=== PATIENT | female | born 1950 | race Caucasian/White ===

== ENCOUNTER 2023-06-20 09:46 | Day surgery (SDC) | payer MEDICARE, OTHER, SELFPAY ==
[2023-06-20] VITALS (22 sets, daily range): BP systolic 101–157; BP diastolic 69–115; PULSE 50–85; RESP 10–20; TEMP 35.9–36.8; O2SAT 91–99; BMI 25.7
[2023-06-20] MEDS: MIDAZOLAM HCL 1 MG/ML inj IVP (09:16)
[2023-06-20] MEDS: fentaNYL 100 MCG/2 ML inj IVP (09:16)
[2023-06-20] MEDS: ACETAMINOPHEN 500 MG TABLET 1000 MG PO ×2 (09:16→17:44)
[2023-06-20] MEDS: OXYCODONE (CR) 10 MG TAB.ER.12H PO (09:16)
[2023-06-20] MEDS: LACTATED RINGERS 1000 ML 1,000 ML 100 ML IV ×2 (09:20→12:19)
--- NOTE | 2023-06-20 10:29 | W.PM.H&PU ---
History & Physical Update History & Physical Update H&P Reviewed and patient assessed: No changes noted
--- NOTE | 2023-06-20 10:35 | CRLHL7_ITS ---
For Patients: As a result of the Cures Act, medical imaging exams and procedure reports are released immediately into your electronic medical record. You may view this report before your referring provider. If you have questions, please contact your health care provider. INDICATION: Postop right hip arthroplasty. For follow-up. TECHNIQUE: AP pelvis and single cross table lateral view of the right hip. FINDINGS: Right total hip arthroplasty. The components are adequately aligned and well seated. Air within the soft tissues and joint space related to the surgery. IMPRESSION: Right total hip arthroplasty. The components are adequately aligned and well seated. Dictated by Ezio Adams MD @ 06/20/2023 6:15:05 PM (Electronically Signed)
[2023-06-20] MEDS: SODIUM CHLORIDE 0.9 % (FLUSH) 10 ML SYRINGE IVF (10:51)
--- NOTE | 2023-06-20 10:51 | SUR.PREOP ---
iodine nasal swabs done
--- NOTE | 2023-06-20 10:59 | SUR.PREOP ---
TIME?OUT:?1055 PT/RN/MDA?VERIFICATION?OF?SURGICAL?SITE,?PROCEDURE,?AND?CONSENT OBTAINED?PRIOR?TO?INVASIVE?PROCEDURE.right hip Rufino carrillo RN pt and consent
--- NOTE | 2023-06-20 11:30 | CRLHL7_ITS ---
For Patients: As a result of the Century Cures Act, medical imaging exams and procedure reports are released immediately into your electronic medical record. You may view this report before your referring provider. If you have questions, please contact your health care provider. INDICATION: Follow up right hip arthroplasty. TECHNIQUE: Fluoroscopically guided intraoperative evaluation of the right hip. FINDINGS: 26.7 seconds fluoroscopy time utilized intraoperatively. There is a right hip arthroplasty. The components are adequately aligned. IMPRESSION: 26.7 seconds fluoroscopy time utilized intraoperatively. Dictated by Ezio Adams MD @ 06/20/2023 6:11:24 PM (Electronically Signed)
[2023-06-20] MEDS: CEFAZOLIN 2 GM in 0.9 % SODIUM CHLORIDE Mini-bag 100 ML IVPB ×2 (11:41→20:15)
[2023-06-20] MEDS: TRANEXAMIC ACID 100 MG/ML INJ 1000 MG IV (11:41)
--- NOTE | 2023-06-20 11:50 | P.NB_ITS ---
Nerve Block Nerve Block Time Seen by Provider: 10:59 Date Seen: 06/20/23 Type of block requested by surgeon for post-operative analgesia: FAMILIA/LFCN Side: right Time out performed: Yes Verification of patient name: Yes Verification of date of : Yes Site marking: site marked Name of person performing procedure: Rufino Continuous monitoring Was continuous monitoring of O2 sat, B/P, phototypesetting equipment monitor, recorded every 15 minutes?: Yes Procedure Checklist: sterile prep, needles and gloves Ultrasound guided. Images saved: Yes Medications given in 5ml increments after negative aspiration: Ropivicaine %: 0.5 mL: 30 Needle gauge: 20 Decadron (mg): 10 Precedex (mcg): 25 Patient tolerated procedure well: Yes Additional comments: Needle noted below psoas tendon needle noted adjacent to LFCN Block Charges Block Charge (with Pro Fee): Other Periph Nerve Block Use of Ultrasound Machine for Block: Yes- US Guidance/pain block
--- NOTE | 2023-06-20 11:51 | W.ANESCHARGE ---
Anesthesia Charges Start Date/Time Anesthesia Start Date: 06/20/23 Anesthesia Start Time: 11:16 Stop Date/Time Anesthesia Stop Date: 06/20/23 Anesthesia Stop Time: 13:20 Summary Extremes of Age - Over 70 or under 1: MDA
--- NOTE | 2023-06-20 13:15 | P.ORPRC_ITS ---
Procedure Note Date of procedure: 06/20/23 Procedure: PREOPERATIVE DIAGNOSIS: 1. Right hip osteoarthritis, severe, primary POSTOPERATIVE DIAGNOSIS: 1. Right hip osteoarthritis, severe, primary PROCEDURE: 1. Right total hip arthroplasty-anterior approach 2. 31801 - intraoperative fluoroscopy up to 1 hour. SURGEON: Ponce Rene MD. NUT PACKER: KIRA Patel; Corey Snow PA-C - Of note, a skilled children's nursery assistant was critical for this case to aid in patient positioning, tissue retraction, limb manipulation/positioning, and closure. ANESTHESIA: General endotracheal anesthetic EBL: Severe 350 mL IMPLANTS: DePuy J&J uncemented total hip [place] cup size 50, hole eliminator, +0 neutral liner Actis stem, standard offset, size 7 +1 mm ceramic 32mm head COMPLICATIONS: None evident INDICATIONS: The patient is a pleasant 72-year-old female who has experienced severe right hip pain and difficulty bearing weight. Workup included x-rays which revealed severe osteoarthrosis in the hip. Given the deformity, the dysfunction, and the pain, as well as the failure of nonoperative management, recommendation was made for surgery. FINDINGS: Full-thickness cartilage loss throughout the femoral head broadly. Femoral head/neck osteophytes. Osteophytes around the acetabulum as well. Moderate effusion upon entering the joint. DESCRIPTION OF PROCEDURE: Following a thorough discussion of risks, benefits, and alternatives consent was obtained and the right hip was marked. The patient was brought to the operating room and placed supine on the operating table. Induction of anesthesia was undertaken. 2 g IV Ancef and 1 g tranexamic acid was administered within 1 hr of incision preoperatively. Proper time-out was performed identifying proper patient, site, procedure. The operative extremity was prepped and draped in the appropriate sterile fashion using ChloraPrep after the patient was positioned on the [place] table with head in neutral alignment and all bony prominences well padded. C-arm fluoroscopic imaging was utilized to confirm proper pelvis rotation and position, and to get true AP films of both the contralateral left, and the affected right hip. This is for comparison. A longitudinal incision was made starting approximately 1 cm distal to the ASIS, and 3-4 cm lateral. The incision was extended distally aiming toward the lateral border the patella. Sharp incision through skin and bovie cautery through the subcutaneous tissue allowed identification of the TFL fascia. This was sharply divided, and the fascia bluntly released from the muscle fibers as we dissected medial. Upon coming to the medial border, we were able to retract the TFL laterally, and penetrated the deeper fascia and identify the crossing circumflex vessels. These were ligated/cauterized. The rectus was elevated from the capsule, and retractors placed laterally and medially along the femoral neck to help with visualization of the capsule. We then performed an inverted T capsulotomy. The capsule was tagged for later repair. Retractors were placed inside the capsule. The femoral neck was visualized after releasing medially down to the lesser trochanter, along the saddle laterally, and up onto the acetabulum. The femoral neck cut was made in line with our preoperative templating. The head was removed in a single piece, and sized. We turned our attention to acetabular preparation. Initially, the labrum was resected from around the perimeter, the pulvinar was excised, allowing us to visualize the false wall. We started the reaming with a 43 mm reamer. This was medialized down to the true wall. We then enlarged our reamers sequentially up to one size less than the selected cup size. We trialed at the same size and found it to have an excellent fit. The selected cup was then opened, inserted, and impacted in line with the goal of 40? of abduction, and 20-25? of anteversion. This was confirmed on C-arm fluoroscopic imaging to be in the appropriate/goal position. Once the cup was placed we placed a hole eliminator and a liner consistent with preop planning. Attention was turned to the femoral preparation. The limb was extended, externally rotated, and adducted. The posteromedial capsule was released, as retractors were placed allowing excellent access to the proximal femur. Initially a dry box operator was followed by canal finder followed by various broaches. We broached sequentially up to the size noted above, found it to have excellent rotational control, and trialing various heads and necks, revealed that appropriate neck offset, and the above noted head size provided the greatest stability, and caodaism of length, and offset. C-arm fluoroscopic imaging confirmed position of the stem, as well as leg lengths, which were compared with the pre procedure all fluoroscopic images. Trial implants were removed, the real femoral stem inserted, as was the appropriate head. After reducing, the leg was placed through range of motion and stability was confirmed anterior, posterior, and lateral. A 3 min Betadine soak was then performed, and thorough irrigation with normal saline followed. Closure of the capsule was performed with #1 PDS. Bleeding was confirmed to be controlled at this stage, and the TFL fascia was closed with #0 strata fix. Subcutaneous, and subcuticular closure was performed with 2-0 Vicryl and 4-0 Monocryl, respectively. Dressings were applied, and the patient was awoken from anesthesia and transferred the PACU in stable condition. A skilled children's nursery assistant was critical for this case to aid in patient positioning, tissue retraction, acetabular and proximal femoral exposure, limb manipu lation/positioning, dislocation/relocation, patient safety, and closure. PLAN: 1. Weight bear as tolerated operative extremity. 2. 23 hr perioperative antibiotics. 3. Ice. 4. PT/OT consults for ambulation assistance/mobility education. 5. Social work consult for discharge planning. 6. DVT prophylaxis with at SCDs, Ricardo Sonyae, and Xarelto x5 days followed by aspirin for a total of 1 month..
--- NOTE | 2023-06-20 13:21 | P.ANES_ITS ---
Anesthesia Charges Start Date/Time Anesthesia Start Date: 06/20/23 Anesthesia Start Time: 11:16 Stop Date/Time Anesthesia Stop Date: 06/20/23 Anesthesia Stop Time: 13:20 Summary Extremes of Age - Over 70 or under 1: CLINIC ADMINISTRATOR
[2023-06-20] MEDS: fentaNYL 100 MCG/2 ML inj 50 MCG IVP (13:28)
[2023-06-20] MEDS: HYDROmorphone 0.5 mg/0.5 ml inj IVP (13:32)
[2023-06-20] MEDS: LACTATED RINGERS 1000 ML 1,000 ML 75 ML IV (15:34)
--- NOTE | 2023-06-20 16:16 | P.IMCN_ITS ---
Date of Consult Consult date: 06/20/23 Requesting Physician: Orthopedics Primary Care Provider: Magi Willson MD Consult Narrative Reason for consult: Medical management Narrative: María Elena Jenkins is a 72 year old female past medical history significant for osteoarthritis, hypertension, hyperlipidemia is POD#0 s/p right total hip arthroplasty-anterior approach. Patient reports pain is currently well managed. Previously 5/10, but now improved. Denies headache or dizziness. Denies chest pain or shortness of breath. No nausea. Tolerating orals. There have been no perioperative complications or nursing concerns reported. Estimated total blood loss documented as 350 ml. Updated and reviewed the active medical problems, past medical history, past surgical history, social history, allergies and medications in our electronic EMR. Review of Systems Narrative: REVIEW OF SYSTEMS: Complete review of systems performed and negative unless otherwise stated in HPI or below. PFSH PFS Medical History (Updated 06/20/23 @ 16:23 by Erinn Gonsales PA-C) Hypertension ?I10 - Essential (primary) hypertension (ICD-10) Sleep apnea ?G47.30 - Sleep apnea, unspecified (ICD-10) Depression ?F32.A - Depression, unspecified (ICD-10) GERD (gastroesophageal reflux disease) ?K21.9 - Gastro-esophageal reflux disease without esophagitis (ICD-10) Surgical History History of tonsillectomy ?Z90.89 - Acquired absence of other organs (ICD-10) Hx of nasal septoplasty ?Z98.890 - Other specified postprocedural states (ICD-10) Hx of appendectomy ?Z90.49 - Acquired absence of other specified parts of digestive tract (ICD- 10) Social History What is your current living situation?: I presently have a place to live In the past 12 months, utilities in danger of being shut off: no In past 12 months, lack of transportation kept you from medical appts, meetings, work, or getting things needed for daily living: no In the past 12 mos, have been you worried that your food would run out before you had money to buy more?: never true In the past 12 mos, the food you bought just didn't last and you didn't have money to buy more?: never true Highest level of school completed/degree received: decline to answer Smoking Status: Former smoker What tobacco products do you use: cigarettes Smoking quit date/years: >15 years ago Do you use any of these nicotine containing products: None Second hand tobacco smoke exposure: No How often do you have a drink containing alcohol: monthly or less Alcohol type: wine How many standard drinks containing alcohol do you have on a typical day: 1 or 2 How often do you have six or more drinks on one occasion: Never AUDIT-C Alcohol total score: 1 Non-prescribed substance use: denies use Caffeine: Yes (coffee) How often does anyone, including family, friends and others, physically hurt you : never How often does anyone, including family, friends and others, insult or talk down to you: never How often does anyone, including family, friends and others, threaten you with harm: never How often does anyone, including family, friends and others, scream or curse at you: never service: No Meds Home Medications and Allergies Home Medications Medication Instructions Recorded Confirmed Type losartan 100 mg tablet 100 mg PO DAILY 06/07/23 06/20/23 History omeprazole 40 mg capsule,delayed 40 mg PO DAILY 06/07/23 06/20/23 History release rosuvastatin 5 mg tablet 5 mg PO DAILY 06/07/23 06/20/23 History Allergies Allergy/AdvReac Type Severity Reaction Status Date / Time lisinopril Allergy Cough Verified 06/20/23 10:10 Penicillins Allergy Verified 06/20/23 10:10 Exam Narrative: Exam Narrative: PHYSICAL EXAM General: Pleasant, conversant, NAD HEENT: Normocephalic, atraumatic, sclera white, EOMI, oral mucosa moist Cardiovascular: RRR, S1S2. No pitting edema Pulmonary: CTA bilaterally without rhonchi, rales, expiratory wheezes. No dyspnea Abdominal: Soft, nondistended, NTTP Neurological: Alert, answering questions appropriately, cranial nerves intact, no focal findings Extremities: No gross joint deformity or swelling. Postoperative dressing in place, dry. Neurovascularly intact Skin: Warm, dry. Const: Vital Signs, click to edit/add: Vital Signs - 24 hr 06/20/23 10:48 06/20/23 11:01 06/20/23 13:15 Temperature 98.3 F 97.2 F L Pulse Rate 83 70 83 Pulse Rate [Left P ulse Oximeter] Respiratory Rate 18 16 20 Blood Pressure 152/96 H 130/80 157/103 H Blood Pressure [Ri ght Arm] Pulse Oximetry 96 95 92 Oxygen Delivery Me thod Room Air Nasal Cannula Room Air Oxygen Flow Rate 3 06/20/23 13:20 06/20/23 13:25 06/20/23 13:30 Temperature Pulse Rate 81 76 71 Pulse Rate [Left P ulse Oximeter] Respiratory Rate 10 L 10 L 12 Blood Pressure 128/91 H 128/86 132/84 Blood Pressure [Ri ght Arm] Pulse Oximetry 95 91 98 Oxygen Delivery Me thod Nasal Cannula Oxygen Flow Rate 2 06/20/23 13:35 06/20/23 13:40 06/20/23 13:45 Temperature Pulse Rate 71 63 60 Pulse Rate [Left P ulse Oximeter] Respiratory Rate 10 L 10 L 10 L Blood Pressure 122/83 121/76 137/88 Blood Pressure [Ri ght Arm] Pulse Oximetry 98 98 98 Oxygen Delivery Me thod Oxygen Flow Rate 06/20/23 13:50 06/20/23 13:55 06/20/23 14:03 Temperature 97.3 F L 96.7 F L Pulse Rate 65 71 62 Pulse Rate [Left P ulse Oximeter] Respiratory Rate 14 12 14 Blood Pressure 126/76 127/89 Blood Pressure [Ri ght Arm] 142/82 H Pulse Oximetry 95 98 Oxygen Delivery Me thod Nasal Cannula Nasal Cannula Oxygen Flow Rate 2 1 06/20/23 14:15 06/20/23 14:30 06/20/23 14:45 Temperature 96.7 F L Pulse Rate Pulse Rate [Left P ulse Oximeter] 74 50 L 52 L Respiratory Rate 16 16 14 Blood Pressure Blood Pressure [Ri ght Arm] 147/95 H 140/115 H 136/72 Pulse Oximetry 97 98 98 Oxygen Delivery Me thod Nasal Cannula Nasal Cannula Nasal Cannula Oxygen Flow Rate 1 0.5 0.5 06/20/23 15:00 Temperature 96.7 F L Pulse Rate Pulse Rate [Left P ulse Oximeter] 65 Respiratory Rate 16 Blood Pressure Blood Pressure [Ri ght Arm] 134/86 Pulse Oximetry 99 Oxygen Delivery Me thod Room Air Oxygen Flow Rate Assessment and Plan Assessment and plan (1) Osteoarthritis of right hip: Problem comment: -POD#0 s/p R ALE -perioperative management including pain management and anticoagulation per Orthopedic surgery -encourage postoperative pulmonary hygiene -PT OT consults -plan to discharge home with friend tomorrow, 06/21 Status: Acute (2) Hypertension: Problem comment: -home medications include losartan and rosuvastatin for hyperlipidemia -may resume home medications upon discharge. May consider antihypertensives in the morning if necessary Status: Acute Plan Hospital medicine team will sign off. Please contact our service with any questions or concerns.
[2023-06-20] MEDS: SENNOSIDES 1 TAB TABLET 2 TAB PO (20:18)
--- NOTE | 2023-06-20 22:14 | PC.NURSE ---
End of Shift: Patient pleasant and cooperative. Afebrile. Rating pain in right hip 1-5/10 and denies need for PRN pain medication. Up to bathroom with 2 assist, walker and gait belt. Leg buckled on the way to the bathroom patient able to stabilize self. Dressing to right hip C/D/I. CMS intact. Tolerating regular diet with no nausea.
[2023-06-21 03:00] VITALS: BP 139/86; PULSE 86; RESP 20; TEMP 36.1; O2SAT 94
[2023-06-21] MEDS: CEFAZOLIN 2 GM in 0.9 % SODIUM CHLORIDE Mini-bag 100 ML IVPB (03:36)
--- NOTE | 2023-06-21 05:55 | PC.NURSE ---
End of shift [id number]: Patient denies any pain to right hip, continues to utilize ice for swelling/inflammation prophylactically. Up with SBA with walker and gait belt to bathroom, continent of bladder and bowel Dressing to right hip clean, dry and intact.
[2023-06-21 06:13] LABS: Basophils Percent Auto 0.1 % (0.0-3.0); Hematocrit 40.3 % (33.0-51.0); Immature Granulocytes Pct Auto 0.8 %; Lymphocytes Percent Auto 6.2 % (20-44); Mean Corpuscular HGB Conc 35 gm/dL (32-36); Mean Corpuscular Hemoglobin 32 pg (26-34); Mean Corpuscular Volume 91 fL (80-100); Monocytes Percent Auto 7.2 % (0.0-11.0); Neutrophils Percent Auto 85.7 % (42.0-72.0); Platelet Count* 210 K/uL (140-440); RDW Coefficient of Variation % 12.7 % (11.5-15.5); Red Blood Count 4.45 m/uL (4.00-5.20); White Blood Count* 16.77 K/uL (4.50-11.00)
[2023-06-21 06:28] LABS: Potassium* 4.1 mmol/L (3.6-5.1); Sodium* 135 mmol/L (135-149)
[2023-06-21 06:30] LABS: Slide Review Reflex No
[2023-06-21 06:31] LABS: Blood Urea Nitrogen* 18 mg/dL (7-30); Creatinine* 0.6 mg/dL (0.5-1.5); Est. Creatinine Clearance* 51.58; Estimated Glomerular Filt Rate 94 ml/min
[2023-06-21 07:42] VITALS: BP 147/92; PULSE 89; RESP 16; TEMP 36.8; O2SAT 96
[2023-06-21] MEDS: OXYCODONE 5 MG TABLET PO (07:46)
--- NOTE | 2023-06-21 08:32 | P.ORPN_ITS ---
Subjective Subjective Date Seen: 06/21/23 Principal diagnosis: Status postop day 1, right total hip arthroplasty - anterior approach Interval history: Patient reports doing well. No acute events over night. Reports slept very well. Pain managed with scheduled and PRN medications, ice. DVT prophylaxis: Rivaroxaban, bilateral knee high Ricardo stockings, SCDs, walking. Notes 1 right lower extremity buckle episode yesterday, as she comments she was unable to feel her leg. Did not fall. Starting to experience some tingling along the right lower extremity. Denies fevers, chills, aches, N/V, CP, SOB/MILLAN, or lightheadedness. No flatus to date. Ortho Exam Narrative Exam Narrative: -Patient appears comfortable in bed; no apparent acute distress. Friend pres ent. -Alert and oriented times 3 -Operative hip swollen; soft tissues supple; no obvious erythema. Ecchymosis minimal posterior proximal bandage region. Warmth appropriate -Surgical dressing clean, dry, intact; no obvious drainage, no erythematous streaking peripheral to the bandage -Bilateral calves soft and supple; no significant swelling, edema, tenderness, erythema, discoloration, warmth, or palpable cords -2+ DP/PT pulses, intact dermatomes and myotomes distally (5/5 strength). Positive numbness about the lateral femoral cutaneous nerve distribution. Strong quad control. Const Vital Signs, click to edit/add: Vital Signs - 24 hr 06/20/23 10:48 06/20/23 11:01 06/20/23 13:15 Temperature 98.3 F 97.2 F L Pulse Rate 83 70 83 Pulse Rate [Left Pulse Oximeter] Respiratory Rate 18 16 20 Blood Pressure 152/96 H 130/80 157/103 H Blood Pressure [Left Arm] Blood Pressure [Right Arm] Pulse Oximetry 96 95 92 Oxygen Delivery Method Room Air Nasal Cannula Room Air Oxygen Flow Rate 3 06/20/23 13:20 06/20/23 13:25 06/20/23 13:30 Temperature Pulse Rate 81 76 71 Pulse Rate [Left Pulse Oximeter] Respiratory Rate 10 L 10 L 12 Blood Pressure 128/91 H 128/86 132/84 Blood Pressure [Left Arm] Blood Pressure [Right Arm] Pulse Oximetry 95 91 98 Oxygen Delivery Method Nasal Cannula Oxygen Flow Rate 2 06/20/23 13:35 06/20/23 13:40 06/20/23 13:45 Temperature Pulse Rate 71 63 60 Pulse Rate [Left Pulse Oximeter] Respiratory Rate 10 L 10 L 10 L Blood Pressure 122/83 121/76 137/88 Blood Pressure [Left Arm] Blood Pressure [Right Arm] Pulse Oximetry 98 98 98 Oxygen Delivery Method Oxygen Flow Rate 06/20/23 13:50 06/20/23 13:55 06/20/23 14:03 Temperature 97.3 F L 96.7 F L Pulse Rate 65 71 62 Pulse Rate [Left Pulse Oximeter] Respiratory Rate 14 12 14 Blood Pressure 126/76 127/89 Blood Pressure [Left Arm] Blood Pressure [Right Arm] 142/82 H Pulse Oximetry 95 98 Oxygen Delivery Method Nasal Cannula Nasal Cannula Oxygen Flow Rate 2 1 06/20/23 14:15 06/20/23 14:30 06/20/23 14:45 Temperature 96.7 F L Pulse Rate Pulse Rate [Left Pulse Oximeter] 74 50 L 52 L Respiratory Rate 16 16 14 Blood Pressure Blood Pressure [Left Arm] Blood Pressure [Right Arm] 147/95 H 140/115 H 136/72 Pulse Oximetry 97 98 98 Oxygen Delivery Method Nasal Cannula Nasal Cannula Nasal Cannula Oxygen Flow Rate 1 0.5 0.5 06/20/23 15:00 06/20/23 15:30 06/20/23 16:30 Temperature 96.7 F L Pulse Rate Pulse Rate [Left Pulse Oximeter] 65 66 67 Respiratory Rate 16 16 16 Blood Pressure Blood Pressure [Left Arm] Blood Pressure [Right Arm] 134/86 110/75 119/69 Pulse Oximetry 99 93 94 Oxygen Delivery Method Room Air Room Air Room Air Oxygen Flow Rate 06/20/23 17:30 06/20/23 18:30 06/20/23 19:30 Temperature 97.1 F L 97.4 F L Pulse Rate Pulse Rate [Left Pulse Oximeter] 67 72 85 Respiratory Rate 16 16 18 Blood Pressure Blood Pressure [Left Arm] Blood Pressure [Right Arm] 133/87 101/82 137/92 H Pulse Oximetry 92 94 93 Oxygen Delivery Method Room Air Room Air Room Air Oxygen Flow Rate 06/20/23 23:00 06/20/23 23:00 06/21/23 03:00 Temperature 98.2 F 97.0 F L Pulse Rate Pulse Rate [Left Pulse Oximeter] 80 80 86 Respiratory Rate 18 18 20 Blood Pressure Blood Pressure [Left Arm] 123/78 139/86 Blood Pressure [Right Arm] Pulse Oximetry 92 94 Oxygen Delivery Method Room Air Room Air Oxygen Flow Rate 06/21/23 07:42 Temperature 98.3 F Pulse Rate Pulse Rate [Left Pulse Oximeter] 89 Respiratory Rate 16 Blood Pressure Blood Pressure [Left Arm] 147/92 H Blood Pressure [Right Arm] Pulse Oximetry 96 Oxygen Delivery Method Room Air Oxygen Flow Rate Assessment and Plan Assessment and plan (1) Osteoarthritis of right hip: Problem details: -POD#1 s/p R ALE -perioperative management including pain management and anticoagulation per Orthopedic surgery -encourage postoperative pulmonary hygiene -PT OT consults -plan to discharge home with friend tomorrow, 06/21 Status: Acute (2) Hypertension: Problem details: -home medications include losartan and rosuvastatin for hyperlipidemia -may resume home medications upon discharge. May consider antihypertensives in the morning if necessary Status: Acute Plan - Complete 23 hour perioperative antibiotics. - PT/OT consult for education and assistance. - Social work consult for discharge planning - Prescribed analgesics as needed - DVT prophylaxis: Rivaroxaban, bilateral knee high Ricardo Hose stockings and SCDs - Anticipation is for discharge to home with friend 06/21/2023 if the patient remains medically stable, pain is controlled, and they are safe with mobilization.
[2023-06-21] MEDS: RIVAROXABAN 10 MG TABLET PO (09:03)
[2023-06-21] MEDS: SENNOSIDES 1 TAB TABLET 2 TAB PO (09:03)
--- NOTE | 2023-06-21 10:54 | PC.NURSE ---
Pt alert and oriented. Pt had no complaints of pain but just that she felt bruised. Pt up with SBA with walker. Pt?s dressing is dry and intact. Pt discharged home with friend at 1040am.
== END 2023-06-21 10:45 | disposition home or self-care (01) ==
LOC: OR 09:47 → MEDSURG 09:50
PROVIDERS: PCP Family Medicine; Visit Provider Orthopaedic Surgery Sports Medicine
PROC: (CPT 27130; principal; 2023-06-20 11:30)
DX: M16.11 Unilateral primary osteoarthritis, right hip (principal); G89.18 Other acute postprocedural pain; I10 Essential (primary) hypertension; G47.30 Sleep apnea, unspecified; F32.A Depression, unspecified; K21.9 Gastro-esophageal reflux disease without esophagitis
CPT/HCPCS: 27130; 01214; 36415; 64450; 73501; 76000; 76942; 82565; 84132; 84295; 84520; 85025; 97110; 97116; 97161; 97165; 97535; 99100; A9270; C1776; J0690; J1100; J1170; J2250; J2405; J2704; J2710; J2795; J3010; J7120

== ENCOUNTER 2023-07-20 11:15 | Outpatient (RCR) | payer MEDICARE, OTHER, SELFPAY ==
--- NOTE | 2023-06-09 11:40 | PT.OPEX ---
PT [place] Outpatient Eval PT [facility] Outpatient Eval Start: 06/09/23 07:04 Freq: Status: Active Protocol: Document 06/09/23 07:04 MLS (Rec: 06/09/23 11:38 MLS [id number]) E-signed By Corazon Brooks DPT Physical Therapy Outpatient Evaluation Insurance Information Recert Due Date 09/06/23 Insurance Name Medicare B,[employer] Medical Diagnosis M16.11 Unilateral primary OA, right hip Z96.641 presence of right artificial hip joint 06/20/23 Treating Diagnosis M16.11 Unilateral primary OA, right hip Z96.641 presence of right artificial hip joint 06/20/23 Referring MD Ponce Rene MD Subjective Subjective Patient is a 72 year old female who presents to physical therapy for her pre- op appointment prior to her ALE surgery scheduled on 06/20. She states that she has had hip pain for years. She is doing personal training ( twice a week es/Th), chiropractic, and acupuncture to try to keep it in check. Aggravating factors include walking long distances, crossing legs, getting on and off ground. Significant past medical history includes arthritis. Patient would like to be able to walk pain- free through attending her physical therapy sessions. Pain Comments Today: 6/10 on a 0-10 pain scale with 10 = extreme pain At its worst: 8/10 At its best: 6/10 Current Work Status Retired Occupation Previous temporary administrative assistant Preferred Name [employer] Objective Other/Pertinent Objective Antalgic gait noted KNEE ROM Grossly tested WNL HIP ROM Left hip: Grossly tested WNL Right hip: Extension/Flexion: 0-90, pain at end range of both Internal Rotation: 30 External Rotation 30 Abduction: 30 LLE MMT: Hip flexion: R 3+/5 L 4/5 Hip abduction: R 3/5 L 4-/5 Hip extension: R 3+/5 L 4/5 Knee flexion: R 4/5 L 4/5 Knee extension: R 4-/5 L 4/5 TX: Reviewed/demonstrated on frequency to perform HEP post operatively including: long sitting quad set ankle pumps supine glute sets supine hamstring sets supine heel slide standing hip abd with UE support Extensive discussion and education on what to expect post operatively. Time was spent discussing home modifications, Assistive devices, pain control, fall prevention, hospital stay time line, and assist needed for activities post surgically. Pt questions were answered and demonstrated understanding. Functional Test Performed & Score Post-op: ...../80 A score increase of 6 points shows a significant improvement in lower extremity function. Assessment Assessment/Impression Pt is a 72 year old female who presents with concerns of right hip pain and for her pre -op appointment. ALE scheduled for 06/20/23. Patient also has notable objective findings including limited ROM and decreased strength which are also likely contributing to the problem. Patient is a good candidate for skilled therapy to target deficits described above. Skilled PT intervention is necessary for use of therapeutic exercise manual therapy, neuromuscular re- education, gait training, and therapeutic activity. Functional impairments include difficulty with standing, walking, ADLs, and sleeping. See appropriate sections of PT eval for complete list of goals and POC. D/C plan and criteria is for pt to achieve the goals as listed below or until max rehab potential is met. Pt was agreeable with plan of care and goals established. Primary Functional Limitations standing walking getting in and out of car sleeping exercising ADLs sleeping Plan of Care Rehabilitation Potential Good Physical Therapy Goals 1) Pt will be indep with HEP for long-term management of pain/symptoms 2) Pt will improve hip AROM at least 0-90* for improved sit to stand transfers 3) Patient will ascend/descend at least 5 steps using single rail and reciprocal pattern to improve ease of mobility at home/community 4)Pt will ambulate at least 30 minutes with walker and cane device (progression to no assistive device), minimal antalgic gait for improved community mobility 5. Patient will have a 5 point improvement on lower extremity functional scale. 6. Patient will be able to drive for 30 minutes pain free . 7. Patient will be able to perform ADLs with <2/10 pain. 8. Patient will be able to return to her personalization specialist for balance work with <2/10 pain. Coordination/Communication With Referral Source Treatment Plan/Direct Interventions Gait Training,Ice/Cold/ Vasopneumatic,Manual Therapy, Therapeutic Activities, Therapeutic Exercises Patient Will Be Discharged From Therapy Independently Progressing Evaluation Billing Untimed Code Treatment Minutes 15 Complexity Low Certification Information Physician Comment/Change : Physician NPI Number #
== END 2023-09-28 09:19 | disposition home or self-care (01) ==
PROVIDERS: PCP Internal Medicine Gastroenterology; Visit Provider Orthopaedic Surgery Sports Medicine
DX: M16.11 Unilateral primary osteoarthritis, right hip (principal); Z96.641 Presence of right artificial hip joint; Z51.89 Encounter for other specified aftercare
CPT/HCPCS: 97110; 97161

== ENCOUNTER 2024-05-23 06:10 | Emergency (ER) | payer MEDICARE, OTHER, SELFPAY ==
[2024-05-23] VITALS (48 sets, daily range): BP systolic 131–172; BP diastolic 79–127; PULSE 70–91; RESP 16–20; TEMP 36.4; O2SAT 89–97; BMI 25.8
--- NOTE | 2024-05-23 06:35 | ED_ITS ---
HPI - SOB/Dyspnea General Time Seen by Provider: 06:35 <Alexsandra Mcallister MD - Last Filed: 05/23/24 07:24> Date Seen: 05/23/24 <Alexsandra Mcallister MD - Last Filed: 05/23/24 07:24> Chief Complaint: Shortness of Breath/Dyspnea <Alexsandra Mcallister MD - Last Filed: 05/23/24 07:24> Stated Complaint: Difficulty breathing <Alexsandra Mcallister MD - Last Filed: 05/23/24 07:24> Time Seen by Provider: 05/23/24 06:35 <Alexsandra Mcallister MD - Last Filed: 05/23/24 07:24> Source: patient and RN notes reviewed <Alexsandra Mcallister MD - Last Filed: 05/23/24 07:24> Mode of arrival: ambulatory <Alexsandra Mcallister MD - Last Filed: 05/23/24 07:24> Limitations: no limitations <Alexsandra Mcallister MD - Last Filed: 05/23/24 07:24> History of Present Illness HPI Narrative: Froy is a very pleasant 73-year-old female with history of right hip replacement otherwise healthy who comes to the emergency room for evaluation regarding abdominal and chest pain and difficulty breathing. She notes that she had the onset of a band of pain around her upper abdomen lower chest at approximately 0300 hours. She had a similar instance of this discomfort a few nights ago that went away. This morning the pain is not going away. Patient notes that it is very hard to take a deep breath. In triage she had an episode of vomiting and stool and urine incontinence. She notes that the pain wraps around to her back. She notes no recent illnesses cough cold or fever. She denies lower extremity symptoms. She has not had fever or chills. Movement increases her pain. However, she is still experiencing pain when she is sitting. <Alexsandra Mcallister MD - Last Filed: 05/23/24 07:24> Related Data Home Medications: Home Medications ?Medication ?Instructions ?Recorded ?Confirmed losartan 100 mg tablet 100 mg PO DAILY 06/07/23 12/06/23 omeprazole 40 mg capsule,delayed 40 mg PO DAILY 06/07/23 12/06/23 release rosuvastatin 5 mg tablet 5 mg PO DAILY 06/07/23 12/06/23 Previous Rx's ?Medication ?Instructions ?Recorded acetaminophen 500 mg capsule 500 - 1,000 mg (1 - 2 x 500 mg) PO 06/21/23 Q6H PRN #100 caps aspirin 81 mg tablet,delayed 81 mg PO BID #50 tabs 06/21/23 release cephalexin 500 mg capsule 2,000 mg (4 x 500 mg) PO ONCE 07/06/23 pre-med #4 caps <Alexsandra Mcallister MD - Last Filed: 05/23/24 07:24> Allergies/Adverse Reactions: Allergies Allergy/AdvReac Type Severity Reaction Status Date / Time lisinopril Allergy Cough Verified 05/23/24 08:27 Penicillins Allergy Verified 05/23/24 08:27 <Alexsandra Mcallister MD - Last Filed: 05/23/24 07:24> Review of Systems Status of ROS: Reports: 10 or more systems reviewed and unremarkable except as noted in History and below <Alexsandra Mcallister MD - Last Filed: 05/23/24 07:24> [facility] [place] History: Medical History Hypertension ?I10 - Essential (primary) hypertension (ICD-10) Sleep apnea ?G47.30 - Sleep apnea, unspecified (ICD-10) Depression ?F32.A - Depression, unspecified (ICD-10) GERD (gastroesophageal reflux disease) ?K21.9 - Gastro-esophageal reflux disease without esophagitis (ICD-10) <Alexsandra Mcallister MD - Last Filed: 05/23/24 07:24> Surgical History: Surgical History 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) ?Z96.641 - Presence of right artificial hip joint (ICD-10) History of tonsillectomy ?Z90.89 - Acquired absence of other organs (ICD-10) Hx of nasal septoplasty ?Z98.890 - Other specified postprocedural states (ICD-10) Hx of appendectomy ?Z90.49 - Acquired absence of other specified parts of digestive tract (ICD- 10) <Alexsandra Mcallister MD - Last Filed: 05/23/24 07:24> Social History: Social History What is your current living situation?: I presently have a place to live In the past 12 months, utilities in danger of being shut off: no In the past 12 mos, have been you worried that your food would run out before you had money to buy more?: never true In the past 12 mos, the food you bought just didn't last and you didn't have money to buy more?: never true Highest level of school completed/degree received: decline to answer Smoking Status: Former smoker What tobacco products do you use: cigarettes Smoking quit date/years: >15 years ago Do you use any of these nicotine containing products: None Second hand tobacco smoke exposure: No How often do you have a drink containing alcohol: monthly or less Alcohol type: wine How many standard drinks containing alcohol do you have on a typical day: 1 or 2 How often do you have six or more drinks on one occasion: Never AUDIT-C Alcohol total score: 1 Non-prescribed substance use: denies use Caffeine: Yes (coffee) How often does anyone, including family, friends and others, physically hurt you : never How often does anyone, including family, friends and others, insult or talk down to you: never How often does anyone, including family, friends and others, threaten you with harm: never How often does anyone, including family, friends and others, scream or curse at you: never service: No <Alexsandra Mcallister MD - Last Filed: 05/23/24 07:24> Exam Narrative: Exam Narrative: Alert and oriented. She is mildly diaphoretic. Mentating normally. EOM is full. Heart with regular rate and rhythm. Lungs are clear bilaterally although breath sounds are distant as she is unable to take a deep breath. Abdomen shows tenderness in the epigastrium and right upper quadrant. Bowel sounds are present. Lower extremities without edema. She is able to move her extremities and there is no calf tenderness. <Alexsandra Mcallister MD - Last Filed: 05/23/24 07:24> Const: Vital Signs, click to edit/add: Vital Signs - 24 hr 05/23/24 06:28 05/23/24 06:29 05/23/24 06:53 Temperature 97.6 F Pulse Rate Pulse Rate [Left P ulse Oximeter] 90 77 Respiratory Rate 20 20 Blood Pressure Blood Pressure [Ri ght Upper Arm] 172/127 H 165/99 H Pulse Oximetry 95 95 97 Oxygen Delivery Me thod Room Air Room Air 05/23/24 08:03 05/23/24 08:04 05/23/24 08:05 Temperature Pulse Rate 81 76 74 Pulse Rate [Left P ulse Oximeter] Respiratory Rate Blood Pressure 153/89 H Blood Pressure [Ri ght Upper Arm] Pulse Oximetry 93 95 92 Oxygen Delivery Me thod 05/23/24 08:30 05/23/24 08:32 05/23/24 08:33 Temperature Pulse Rate 78 73 72 Pulse Rate [Left P ulse Oximeter] Respiratory Rate Blood Pressure 143/90 H Blood Pressure [Ri ght Upper Arm] Pulse Oximetry 92 94 93 Oxygen Delivery Me thod 05/23/24 09:00 05/23/24 09:02 05/23/24 09:03 Temperature Pulse Rate 76 71 77 Pulse Rate [Left P ulse Oximeter] Respiratory Rate Blood Pressure 148/89 H Blood Pressure [Ri ght Upper Arm] Pulse Oximetry 91 91 91 Oxygen Delivery Me thod 05/23/24 09:32 05/23/24 09:48 05/23/24 10:00 Temperature Pulse Rate 86 83 Pulse Rate [Left P ulse Oximeter] Respiratory Rate Blood Pressure 159/102 H Blood Pressure [Ri ght Upper Arm] Pulse Oximetry 93 92 Oxygen Delivery Me thod 05/23/24 10:02 05/23/24 11:08 05/23/24 11:30 Temperature Pulse Rate 86 79 Pulse Rate [Left P ulse Oximeter] Respiratory Rate 18 Blood Pressure 147/88 H Blood Pressure [Ri ght Upper Arm] Pulse Oximetry 93 91 Oxygen Delivery Me thod 05/23/24 12:12 05/23/24 12:30 05/23/24 13:00 Temperature Pulse Rate 88 86 90 Pulse Rate [Left P ulse Oximeter] Respiratory Rate Blood Pressure Blood Pressure [Ri ght Upper Arm] Pulse Oximetry 91 96 94 Oxygen Delivery Me thod 05/23/24 13:23 05/23/24 13:30 05/23/24 13:32 Temperature Pulse Rate 85 88 80 Pulse Rate [Left P ulse Oximeter] Respiratory Rate 16 16 Blood Pressure 146/79 H 142/96 H Blood Pressure [Ri ght Upper Arm] Pulse Oximetry 93 97 91 Oxygen Delivery Me thod 05/23/24 14:00 05/23/24 14:03 05/23/24 14:04 Temperature Pulse Rate 78 86 77 Pulse Rate [Left P ulse Oximeter] Respiratory Rate 16 Blood Pressure 144/97 H Blood Pressure [Ri ght Upper Arm] Pulse Oximetry 97 93 96 Oxygen Delivery Me thod 05/23/24 14:30 05/23/24 14:31 05/23/24 15:00 Temperature Pulse Rate 79 83 76 Pulse Rate [Left P ulse Oximeter] Respiratory Rate Blood Pressure 141/93 H Blood Pressure [Ri ght Upper Arm] Pulse Oximetry 94 94 93 Oxygen Delivery Me thod 05/23/24 15:02 05/23/24 15:03 05/23/24 15:38 Temperature Pulse Rate 78 77 76 Pulse Rate [Left P ulse Oximeter] Respiratory Rate Blood Pressure 137/91 H Blood Pressure [Ri ght Upper Arm] Pulse Oximetry 92 93 91 Oxygen Delivery Me thod 05/23/24 16:00 05/23/24 16:02 Temperature Pulse Rate 75 76 Pulse Rate [Left P ulse Oximeter] Respiratory Rate Blood Pressure 131/86 Blood Pressure [Ri ght Upper Arm] Pulse Oximetry 91 92 Oxygen Delivery Me thod <Alexsandra Mcallister MD - Last Filed: 05/23/24 07:24> Vital Signs, click to edit/add: Vital Signs - 24 hr 05/23/24 06:28 05/23/24 06:29 05/23/24 06:53 Temperature 97.6 F Pulse Rate Pulse Rate [Left P ulse Oximeter] 90 77 Respiratory Rate 20 20 Blood Pressure Blood Pressure [Ri ght Upper Arm] 172/127 H 165/99 H Pulse Oximetry 95 95 97 Oxygen Delivery Me thod Room Air Room Air 05/23/24 08:03 05/23/24 08:04 05/23/24 08:05 Temperature Pulse Rate 81 76 74 Pulse Rate [Left P ulse Oximeter] Respiratory Rate Blood Pressure 153/89 H Blood Pressure [Ri ght Upper Arm] Pulse Oximetry 93 95 92 Oxygen Delivery Me thod 05/23/24 08:30 05/23/24 08:32 05/23/24 08:33 Temperature Pulse Rate 78 73 72 Pulse Rate [Left P ulse Oximeter] Respiratory Rate Blood Pressure 143/90 H Blood Pressure [Ri ght Upper Arm] Pulse Oximetry 92 94 93 Oxygen Delivery Me thod 05/23/24 09:00 05/23/24 09:02 05/23/24 09:03 Temperature Pulse Rate 76 71 77 Pulse Rate [Left P ulse Oximeter] Respiratory Rate Blood Pressure 148/89 H Blood Pressure [Ri ght Upper Arm] Pulse Oximetry 91 91 91 Oxygen Delivery Me thod 05/23/24 09:32 05/23/24 09:48 05/23/24 10:00 Temperature Pulse Rate 86 83 Pulse Rate [Left P ulse Oximeter] Respiratory Rate Blood Pressure 159/102 H Blood Pressure [Ri ght Upper Arm] Pulse Oximetry 93 92 Oxygen Delivery Me thod 05/23/24 10:02 05/23/24 11:08 05/23/24 11:30 Temperature Pulse Rate 86 79 Pulse Rate [Left P ulse Oximeter] Respiratory Rate 18 Blood Pressure 147/88 H Blood Pressure [Ri ght Upper Arm] Pulse Oximetry 93 91 Oxygen Delivery Me thod 05/23/24 12:12 05/23/24 12:30 05/23/24 13:00 Temperature Pulse Rate 88 86 90 Pulse Rate [Left P ulse Oximeter] Respiratory Rate Blood Pressure Blood Pressure [Ri ght Upper Arm] Pulse Oximetry 91 96 94 Oxygen Delivery Me thod 05/23/24 13:23 05/23/24 13:30 05/23/24 13:32 Temperature Pulse Rate 85 88 80 Pulse Rate [Left P ulse Oximeter] Respiratory Rate 16 16 Blood Pressure 146/79 H 142/96 H Blood Pressure [Ri ght Upper Arm] Pulse Oximetry 93 97 91 Oxygen Delivery Me thod 05/23/24 14:00 05/23/24 14:03 05/23/24 14:04 Temperature Pulse Rate 78 86 77 Pulse Rate [Left P ulse Oximeter] Respiratory Rate 16 Blood Pressure 144/97 H Blood Pressure [Ri ght Upper Arm] Pulse Oximetry 97 93 96 Oxygen Delivery Me thod 05/23/24 14:30 05/23/24 14:31 05/23/24 15:00 Temperature Pulse Rate 79 83 76 Pulse Rate [Left P ulse Oximeter] Respiratory Rate Blood Pressure 141/93 H Blood Pressure [Ri ght Upper Arm] Pulse Oximetry 94 94 93 Oxygen Delivery Me thod 05/23/24 15:02 05/23/24 15:03 05/23/24 15:38 Temperature Pulse Rate 78 77 76 Pulse Rate [Left P ulse Oximeter] Respiratory Rate Blood Pressure 137/91 H Blood Pressure [Ri ght Upper Arm] Pulse Oximetry 92 93 91 Oxygen Delivery Me thod 05/23/24 16:00 05/23/24 16:02 Temperature Pulse Rate 75 76 Pulse Rate [Left P ulse Oximeter] Respiratory Rate Blood Pressure 131/86 Blood Pressure [Ri ght Upper Arm] Pulse Oximetry 91 92 Oxygen Delivery Me thod <Zacarias Moulton MD - Last Filed: 05/23/24 15:32> Vital Signs, click to edit/add: Vital Signs - 24 hr 05/23/24 06:28 05/23/24 06:29 05/23/24 06:53 Temperature 97.6 F Pulse Rate Pulse Rate [Left P ulse Oximeter] 90 77 Respiratory Rate 20 20 Blood Pressure Blood Pressure [Ri ght Upper Arm] 172/127 H 165/99 H Pulse Oximetry 95 95 97 Oxygen Delivery Me thod Room Air Room Air 05/23/24 08:03 05/23/24 08:04 05/23/24 08:05 Temperature Pulse Rate 81 76 74 Pulse Rate [Left P ulse Oximeter] Respiratory Rate Blood Pressure 153/89 H Blood Pressure [Ri ght Upper Arm] Pulse Oximetry 93 95 92 Oxygen Delivery Me thod 05/23/24 08:30 05/23/24 08:32 05/23/24 08:33 Temperature Pulse Rate 78 73 72 Pulse Rate [Left P ulse Oximeter] Respiratory Rate Blood Pressure 143/90 H Blood Pressure [Ri ght Upper Arm] Pulse Oximetry 92 94 93 Oxygen Delivery Me thod 05/23/24 09:00 05/23/24 09:02 05/23/24 09:03 Temperature Pulse Rate 76 71 77 Pulse Rate [Left P ulse Oximeter] Respiratory Rate Blood Pressure 148/89 H Blood Pressure [Ri ght Upper Arm] Pulse Oximetry 91 91 91 Oxygen Delivery Me thod 05/23/24 09:32 05/23/24 09:48 05/23/24 10:00 Temperature Pulse Rate 86 83 Pulse Rate [Left P ulse Oximeter] Respiratory Rate Blood Pressure 159/102 H Blood Pressure [Ri ght Upper Arm] Pulse Oximetry 93 92 Oxygen Delivery Me thod 05/23/24 10:02 05/23/24 11:08 05/23/24 11:30 Temperature Pulse Rate 86 79 Pulse Rate [Left P ulse Oximeter] Respiratory Rate 18 Blood Pressure 147/88 H Blood Pressure [Ri ght Upper Arm] Pulse Oximetry 93 91 Oxygen Delivery Me thod 05/23/24 12:12 05/23/24 12:30 05/23/24 13:00 Temperature Pulse Rate 88 86 90 Pulse Rate [Left P ulse Oximeter] Respiratory Rate Blood Pressure Blood Pressure [Ri ght Upper Arm] Pulse Oximetry 91 96 94 Oxygen Delivery Me thod 05/23/24 13:23 05/23/24 13:30 05/23/24 13:32 Temperature Pulse Rate 85 88 80 Pulse Rate [Left P ulse Oximeter] Respiratory Rate 16 16 Blood Pressure 146/79 H 142/96 H Blood Pressure [Ri ght Upper Arm] Pulse Oximetry 93 97 91 Oxygen Delivery Me thod 05/23/24 14:00 05/23/24 14:03 05/23/24 14:04 Temperature Pulse Rate 78 86 77 Pulse Rate [Left P ulse Oximeter] Respiratory Rate 16 Blood Pressure 144/97 H Blood Pressure [Ri ght Upper Arm] Pulse Oximetry 97 93 96 Oxygen Delivery Me thod 05/23/24 14:30 05/23/24 14:31 05/23/24 15:00 Temperature Pulse Rate 79 83 76 Pulse Rate [Left P ulse Oximeter] Respiratory Rate Blood Pressure 141/93 H Blood Pressure [Ri ght Upper Arm] Pulse Oximetry 94 94 93 Oxygen Delivery Me thod 05/23/24 15:02 05/23/24 15:03 05/23/24 15:38 Temperature Pulse Rate 78 77 76 Pulse Rate [Left P ulse Oximeter] Respiratory Rate Blood Pressure 137/91 H Blood Pressure [Ri ght Upper Arm] Pulse Oximetry 92 93 91 Oxygen Delivery Me thod 05/23/24 16:00 05/23/24 16:02 Temperature Pulse Rate 75 76 Pulse Rate [Left P ulse Oximeter] Respiratory Rate Blood Pressure 131/86 Blood Pressure [Ri ght Upper Arm] Pulse Oximetry 91 92 Oxygen Delivery Me thod <Emily Garrido MD - Last Filed: 05/23/24 16:50> Documenting provider has reviewed patient's vital signs: yes <Alexsandra Mcallister MD - Last Filed: 05/23/24 07:24> Course Course ED Course: Differential diagnosis includes but is not limited to cholecystitis, biliary colic, PE, aortic dissection, diverticulitis, bowel obstruction. Will place IV and draw labs to include CBC, lipase, comprehensive panel, CRP. Will also obtain EKG and troponin. Patient will be placed on environmental monitoring specialist and oximetry. Recommend CT of the chest abdomen pelvis at this time. <Alexsandra Mcallister MD - Last Filed: 05/23/24 07:24> Differential diagnosis includes but is not limited to cholecystitis, biliary colic, PE, aortic dissection, diverticulitis, bowel obstruction. Will place IV and draw labs to include CBC, lipase, comprehensive panel, CRP. Will also obtain EKG and troponin. Patient will be placed on environmental monitoring specialist and oximetry. Recommend CT of the chest abdomen pelvis at this time. <Zacarias Moulton MD - Last Filed: 05/23/24 15:32> Reevaluation(s) Reevaluation #1: This patient will be signed out to my colleague Dr. Moulton <Alexsandra Mcallister MD - Last Filed: 05/23/24 07:24> Time of Reevaluation #2: 08:40 <Zacarias Moulton MD - Last Filed: 05/23/24 15:32> Reevaluation #2: Patient was updated on her lab and imaging results, CBC did not show any leukocytosis, comprehensive metabolic panel showed elevated LFTs, AST 212, ALT 189 and alkaline phosphatase 165, normal bilirubin levels, imaging showed Impression: 1. Intrahepatic and extrahepatic biliary ductal dilation. Tumefactive sludge versus noncalcified stone within the common bile duct measuring up to 2.3 cm. There may be a small amount of adjacent air within the common bile duct concerning for cholangitis if there is no history of recent biliary manipulation. 2. Possible additional filling defect within the distal common bile duct at the level of the ampulla. Additionally, there is pancreatic duct dilation at the pancreatic head and neck. This is suboptimally evaluated and further evaluation with MRI/MRCP is recommended. 3. Tumefactive sludge versus noncalcified gallstone or large polyp within the gallbladder body. No pericholecystic inflammatory change to suggest acute cholecystitis. This could be further evaluated with above-mentioned MRI versus ultrasound. 4. Hepatic steatosis. 5. Small hiatal hernia. Was able to speak with General surgery on-call Dr. Warren QUEVEDO, she reviewed the imaging, recommendations were for an MRCP and then possibly ERCP and transfer for GI, MRCP is ordered, patient is doing well, nontoxic in appearance, pain is been controlled. No clinical signs of any cholangitis at this time. <Zacarias Moulton MD - Last Filed: 05/23/24 15:32> Time of Reevaluation #3: 14:40 <Zacarias Moulton MD - Last Filed: 05/23/24 15:32> Reevaluation #3: Imaging: MRI abdomen without Choledocholithiasis with a 1.8 cm stone in the midportion of the common bile duct causing significant bile duct dilation. Cholelithiasis. Moderate to severe diffuse fatty infiltration of the liver. <Zacarias Moulton MD - Last Filed: 05/23/24 15:32> Consultations Consultation #1: Spoke Dr. Kush Jaramillo, regarding patient and imaging, she agreed to the transfer, will likely speak to the hospitalist regarding transfer. 2:45 PM: Spoke with hospitalist Dr. Rosalie QUEVEDO, he accepts care of the patient to [facility] surgery floor bed, patient to go via private care to [facility]. Patient and daughter were in agreement this plan. <Zacarias Moulton MD - Last Filed: 05/23/24 15:32> Time: 14:27 <Zacarias Moulton MD - Last Filed: 05/23/24 15:32> Consultation #2: Patient remains stable, no definitive transfer time to [facility]. It is just before 5:00 p.m., patient is unlikely to undergo any procedural testing tonight. Will allow her clears, if this escalates her pain, will have to make her NPO and start maintenance IV fluid. Otherwise NPO after midnight and IV fluids to start then. <Emily Garrido MD - Last Filed: 05/23/24 16:50> Time: 16:49 <Emily Garrido MD - Last Filed: 05/23/24 16:50> Vital Signs Vital signs: Initial Vital Signs Respiratory Effort Normal, Spontaneous, Non-Labored 05/23/24 06:28 Respiratory Depth Normal 05/23/24 06:28 Respiratory Pattern Normal 05/23/24 06:28 Pulse Oximetry 95 05/23/24 06:28 Vital Signs Pulse Oximetry 95 05/23/24 06:28 Temperature 97.6 F 05/23/24 06:29 Pulse Rate 76 05/23/24 16:02 Respiratory Rate 16 05/23/24 14:03 Blood Pressure 131/86 05/23/24 16:02 Pulse Oximetry 92 05/23/24 16:02 Oxygen Delivery Method Room Air 05/23/24 06:53 <Alexsandra Mcallister MD - Last Filed: 05/23/24 07:24> Initial Vital Signs Respiratory Effort Normal, Spontaneous, Non-Labored 05/23/24 06:28 Respiratory Depth Normal 05/23/24 06:28 Respiratory Pattern Normal 05/23/24 06:28 Pulse Oximetry 95 05/23/24 06:28 Vital Signs Pulse Oximetry 95 05/23/24 06:28 Temperature 97.6 F 05/23/24 06:29 Pulse Rate 76 05/23/24 16:02 Respiratory Rate 16 05/23/24 14:03 Blood Pressure 131/86 05/23/24 16:02 Pulse Oximetry 92 05/23/24 16:02 Oxygen Delivery Method Room Air 05/23/24 06:53 <Zacarias Moulton MD - Last Filed: 05/23/24 15:32> Initial Vital Signs Respiratory Effort Normal, Spontaneous, Non-Labored 05/23/24 06:28 Respiratory Depth Normal 05/23/24 06:28 Respiratory Pattern Normal 05/23/24 06:28 Pulse Oximetry 95 05/23/24 06:28 Vital Signs Pulse Oximetry 95 05/23/24 06:28 Temperature 97.6 F 05/23/24 06:29 Pulse Rate 76 05/23/24 16:02 Respiratory Rate 16 05/23/24 14:03 Blood Pressure 131/86 05/23/24 16:02 Pulse Oximetry 92 05/23/24 16:02 Oxygen Delivery Method Room Air 05/23/24 06:53 <Emily Garrido MD - Last Filed: 05/23/24 16:50> Medications Administered Medications: Discontinued Medications Generic Name Dose Route Start Last Admin Trade Name Freq PRN Reason Stop Dose Admin Morphine Sulfate 4 mg 05/23/24 06:42 05/23/24 07:28 Morphine 4 Mg/Ml Inj IVP 05/23/24 06:43 4 mg ONCE ONE Administration Ondansetron HCl 4 mg 05/23/24 06:42 05/23/24 07:28 Ondansetron 2 Mg/Ml Inj IVP 05/23/24 06:43 4 mg ONCE ONE Administration <Alexsandra Mcallister MD - Last Filed: 05/23/24 07:24> Discontinued Medications Generic Name Dose Route Start Last Admin Trade Name Freq PRN Reason Stop Dose Admin Morphine Sulfate 4 mg 05/23/24 06:42 05/23/24 07:28 Morphine 4 Mg/Ml Inj IVP 05/23/24 06:43 4 mg ONCE ONE Administration Ondansetron HCl 4 mg 05/23/24 06:42 05/23/24 07:28 Ondansetron 2 Mg/Ml Inj IVP 05/23/24 06:43 4 mg ONCE ONE Administration <Zacarias Moulton MD - Last Filed: 05/23/24 15:32> Discontinued Medications Generic Name Dose Route Start Last Admin Trade Name Freq PRN Reason Stop Dose Admin Morphine Sulfate 4 mg 05/23/24 06:42 05/23/24 07:28 Morphine 4 Mg/Ml Inj IVP 05/23/24 06:43 4 mg ONCE ONE Administration Ondansetron HCl 4 mg 05/23/24 06:42 05/23/24 07:28 Ondansetron 2 Mg/Ml Inj IVP 05/23/24 06:43 4 mg ONCE ONE Administration <Emily Garrido MD - Last Filed: 05/23/24 16:50> MDM - SOB/Dyspnea Medical Records Attestation: I reviewed the patient's medical records. <Alexsandra Mcallister MD - Last Filed: 05/23/24 07:24> Lab Data Attestation: I reviewed the patient's lab results. <Alexsandra Mcallister MD - Last Filed: 05/23/24 07:24> Labs: Lab Results 05/23/24 05/23/24 Range/Units 06:55 07:13 WBC 9.41 (4.50-11.00) K/uL RBC 5.04 (4.00-5.20) m/uL Hgb 15.1 (12.0-16.0) gm/dL Hct 44.4 (33.0-51.0) % MCV 88 (80-100) fL MCH 30 (26-34) pg MCHC 34 (32-36) gm/dL RDW Coeff of Kaye 13.3 (11.5-15.5) % Plt Count 214 (140-440) K/uL Neut % (Auto) 70.2 (42.0-72.0) % Lymph % (Auto) 15.7 L (20-44) % [place] % (Auto) 8.4 (0.0-11.0) % Eos % (Auto) 4.5 (0.0-7.0) % Baso % (Auto) 0.6 (0.0-3.0) % Neut # (Auto) 6.60 (1.7-7.0) K/uL Lymph # (Auto) 1.50 (0.90-2.90) K/uL [place] # (Auto) 0.80 (0.00-0.90) K/UL Eos # (Auto) 0.42 (0.00-0.50) K/uL Baso # (Auto) 0.06 (0.00-0.30) K/uL Abs Immat Gran (auto) 0.06 (0.00-0.30) K/uL Imm/Tot Granulo (auto) 0.6 % Sodium 134 L (135-149) mmol/L Potassium 3.9 (3.6-5.1) mmol/L Chloride 104 (96-114) mmol/L Carbon Dioxide 23 (20-32) mmol/L Anion Gap 7 (7-15) mEq/L BUN 18 (7-30) mg/dL Creatinine 0.8 (0.5-1.5) mg/dL Estimated Creat Clear 50.80 Estimated GFR 77 ml/min Glucose 156 H (60-115) mg/dL Calcium 9.2 (8.4-10.6) mg/dL Total Bilirubin 0.9 (0.1-1.5) mg/dL AST 212 H (12-35) U/L ALT 189 H (4-35) U/L Alkaline Phosphatase 165 H (40-150) U/L Total Protein 6.5 (6.0-8.3) g/dL Albumin 3.9 (3.3-5.0) g/dL Lipase 114 (23-300) U/L POC Creatinine 0.9 (0.6-1.3) mg/dl POC Troponin I 0.01 (0.01-0.04) ng/ml <Alexsandra Mcallister MD - Last Filed: 05/23/24 07:24> Lab Results 05/23/24 05/23/24 Range/Units 06:55 07:13 WBC 9.41 (4.50-11.00) K/uL RBC 5.04 (4.00-5.20) m/uL Hgb 15.1 (12.0-16.0) gm/dL Hct 44.4 (33.0-51.0) % MCV 88 (80-100) fL MCH 30 (26-34) pg MCHC 34 (32-36) gm/dL RDW Coeff of Kaye 13.3 (11.5-15.5) % Plt Count 214 (140-440) K/uL Neut % (Auto) 70.2 (42.0-72.0) % Lymph % (Auto) 15.7 L (20-44) % [place] % (Auto) 8.4 (0.0-11.0) % Eos % (Auto) 4.5 (0.0-7.0) % Baso % (Auto) 0.6 (0.0-3.0) % Neut # (Auto) 6.60 (1.7-7.0) K/uL Lymph # (Auto) 1.50 (0.90-2.90) K/uL [place] # (Auto) 0.80 (0.00-0.90) K/UL Eos # (Auto) 0.42 (0.00-0.50) K/uL Baso # (Auto) 0.06 (0.00-0.30) K/uL Abs Immat Gran (auto) 0.06 (0.00-0.30) K/uL Imm/Tot Granulo (auto) 0.6 % Sodium 134 L (135-149) mmol/L Potassium 3.9 (3.6-5.1) mmol/L Chloride 104 (96-114) mmol/L Carbon Dioxide 23 (20-32) mmol/L Anion Gap 7 (7-15) mEq/L BUN 18 (7-30) mg/dL Creatinine 0.8 (0.5-1.5) mg/dL Estimated Creat Clear 50.80 Estimated GFR 77 ml/min Glucose 156 H (60-115) mg/dL Calcium 9.2 (8.4-10.6) mg/dL Total Bilirubin 0.9 (0.1-1.5) mg/dL AST 212 H (12-35) U/L ALT 189 H (4-35) U/L Alkaline Phosphatase 165 H (40-150) U/L Total Protein 6.5 (6.0-8.3) g/dL Albumin 3.9 (3.3-5.0) g/dL Lipase 114 (23-300) U/L POC Creatinine 0.9 (0.6-1.3) mg/dl POC Troponin I 0.01 (0.01-0.04) ng/ml <Zacarias Moulton MD - Last Filed: 05/23/24 15:32> Lab Results 05/23/24 05/23/24 Range/Units 06:55 07:13 WBC 9.41 (4.50-11.00) K/uL RBC 5.04 (4.00-5.20) m/uL Hgb 15.1 (12.0-16.0) gm/dL Hct 44.4 (33.0-51.0) % MCV 88 (80-100) fL MCH 30 (26-34) pg MCHC 34 (32-36) gm/dL RDW Coeff of Kaye 13.3 (11.5-15.5) % Plt Count 214 (140-440) K/uL Neut % (Auto) 70.2 (42.0-72.0) % Lymph % (Auto) 15.7 L (20-44) % [place] % (Auto) 8.4 (0.0-11.0) % Eos % (Auto) 4.5 (0.0-7.0) % Baso % (Auto) 0.6 (0.0-3.0) % Neut # (Auto) 6.60 (1.7-7.0) K/uL Lymph # (Auto) 1.50 (0.90-2.90) K/uL [place] # (Auto) 0.80 (0.00-0.90) K/UL Eos # (Auto) 0.42 (0.00-0.50) K/uL Baso # (Auto) 0.06 (0.00-0.30) K/uL Abs Immat Gran (auto) 0.06 (0.00-0.30) K/uL Imm/Tot Granulo (auto) 0.6 % Sodium 134 L (135-149) mmol/L Potassium 3.9 (3.6-5.1) mmol/L Chloride 104 (96-114) mmol/L Carbon Dioxide 23 (20-32) mmol/L Anion Gap 7 (7-15) mEq/L BUN 18 (7-30) mg/dL Creatinine 0.8 (0.5-1.5) mg/dL Estimated Creat Clear 50.80 Estimated GFR 77 ml/min Glucose 156 H (60-115) mg/dL Calcium 9.2 (8.4-10.6) mg/dL Total Bilirubin 0.9 (0.1-1.5) mg/dL AST 212 H (12-35) U/L ALT 189 H (4-35) U/L Alkaline Phosphatase 165 H (40-150) U/L Total Protein 6.5 (6.0-8.3) g/dL Albumin 3.9 (3.3-5.0) g/dL Lipase 114 (23-300) U/L POC Creatinine 0.9 (0.6-1.3) mg/dl POC Troponin I 0.01 (0.01-0.04) ng/ml <Emily Garrido MD - Last Filed: 05/23/24 16:50> Imaging Data CT Chest/Ab/Pelvis: Attestation: I have reviewed the pertinent imaging results. <Alexsandra Mclalister MD - Last Filed: 05/23/24 07:24> ECG Data Attestation: I personally reviewed and interpreted this ECG as follows: <Alexsandra Mcallister MD - Last Filed: 05/23/24 07:24> ECG interpretation date: 05/23/24 <Alexsandra Mcallister MD - Last Filed: 05/23/24 07:24> Discharge Plan Discharge Clinical Impression: Choledocholithiasis <Alexsandra Mcallister MD - Last Filed: 05/23/24 07:24> Patient Disposition: [facility] <Alexsandra Mcallister MD - Last Filed: 05/23/24 07:24>
--- NOTE | 2024-05-23 06:42 | CRLHL7_ITS ---
For Patients: As a result of the Century Cures Act, medical imaging exams and procedure reports are released immediately into your electronic medical record. You may view this report before your referring provider. If you have questions, please contact your health care provider. Indication: Mid right-sided chest and abdominal pain. Technique: CT of the chest, abdomen and pelvis was performed following the administration of 85 mL Isovue 370. Comparison: 10/04/2016. Findings: CHEST Lungs and pleura: Unchanged 5 mm nodule within the left lower lobe (3/75). Minimal dependent lower lobe atelectasis. No pleural effusion or pneumothorax. Heart and great vessels: The heart is normal in size. No pericardial effusion. Aorta and pulmonary artery are normal in caliber. Mild atherosclerotic aortic calcifications. Thyroid and mediastinum: Thyroid is normal. No mediastinal lymphadenopathy by size criteria. Chest wall: Unremarkable. ABDOMEN AND PELVIS Liver: Diffuse hepatic steatosis. The gallbladder is mildly distended with a 3.8 by 2.7 cm noncalcified structure within the gallbladder body. Additionally, there is a noncalcified gas containing structure within the common bile duct measuring 1.6 x 2.3 cm. The common bile duct is dilated upstream measuring up to 2.5 cm. Distally the common bile duct is also dilated up to 1.1 cm to the level of the ampulla. Possible additional filling defect within the common bile duct at the level of the ampulla. Moderate intrahepatic biliary ductal dilation. Pancreas: Mild pancreatic duct dilation at the level of the pancreatic head and neck. Spleen: Unremarkable. Adrenals: Unremarkable. Kidneys: Unremarkable. No nephrolithiasis or hydronephrosis. Aorta/IVC: Mild atherosclerotic aortic calcifications without aneurysmal dilation. Lymph nodes: No lymphadenopathy. Bowel: Nonobstructed bowel. Scattered colonic diverticula without findings of acute diverticulitis. Colon is decompressed. Appendix is not definitively visualized. Small hiatal hernia. No localized inflammatory changes. No intraperitoneal free air or fluid. Pelvis: Decompressed bladder. Bones/body wall: Partially visualized right hip prosthesis. Multilevel degenerative disc disease. Impression: 1. Intrahepatic and extrahepatic biliary ductal dilation. Tumefactive sludge versus noncalcified stone within the common bile duct measuring up to 2.3 cm. There may be a small amount of adjacent air within the common bile duct concerning for cholangitis if there is no history of recent biliary manipulation. 2. Possible additional filling defect within the distal common bile duct at the level of the ampulla. Additionally, there is pancreatic duct dilation at the pancreatic head and neck. This is suboptimally evaluated and further evaluation with MRI/MRCP is recommended. 3. Tumefactive sludge versus noncalcified gallstone or large polyp within the gallbladder body. No pericholecystic inflammatory change to suggest acute cholecystitis. This could be further evaluated with above-mentioned MRI versus ultrasound. 4. Hepatic steatosis. 5. Small hiatal hernia. Please note that all CT scans at this facility use dose modulation, iterative reconstruction, and/or weight-based dosing when appropriate to reduce radiation dose to as low as reasonably achievable. Dictated by Denise Carrillo MD @ 05/23/2024 8:29:35 AM (Electronically Signed)
--- OUTSIDE RECORDS SUMMARY | 2024-05-23 07:13 | XMS_ITS | Clinical Summary ---
Author Organization [facility] Address [place], [place] [address] Care Team Providers Care Director Of Orthopedics Name Role Phone Marie Schultz MD Unavailable [phone] Magi Willson MD Primary Care Provider Allergies Active Allergy Reactions Criticality Noted Date Comments Penicillins Anaphylaxis High 02/08/2007 Medications Medication Sig Dispensed Refills Start Date End Date Status MEDICATION ORDER COMPOSER mandibular advancement device/ dental appliance [id number] 1 0 10/09/2007 Active omeprazole (PRILOSEC) 40 mg Delayed-Release capsuleIndications:E osinophilic esophagitis Take 1 Capsule (40 mg) by mouth once daily before a meal. 90 Capsule 3 03/18/2023 Active medication order composerIndications: Mild obstructive sleep apnea,Snoring 1 mandibular advancement device to be used during sleep 1 Device 02/17/2024 Active losartan (COZAAR) 100 mg tabletIndications:HT N (hypertension) TAKE 1 TABLET (100 MG) BY MOUTH ONCE DAILY. 90 Tablet 1 03/22/2024 Active rosuvastatin (CRESTOR) 5 mg tabletIndications:Hy perlipidemia, unspecified hyperlipidemia type TAKE 1 TABLET (5 MG) BY MOUTH AT BEDTIME. 90 Tablet 1 03/22/2024 Active loratadine (CLARITIN ORAL) Take by mouth. prn Active acetaminophen (TYLENOL EXTRA STRGTH) 500 mg tablet TAKE 1 TO 2 TABLETS(500-1000 MG) BY MOUTH EVERY 6 HOURS NEEDED, MAX DAILY DOSE: 4000MG 06/21/2023 Active ibuprofen (ADVIL; MOTRIN) 600 mg tablet Take 600 mg by mouth every 6 hours if needed. 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 BPPV (benign paroxysmal positional vertigo) 08/05 HTN (hypertension) 08/28/2015 Eosinophilic esophagitis 08/14/2014 Overview (09/20/2019): EGD 08/2014 EE EGD 09/2019 EoE, try 6 food type eosinophilic esophagitis elimination diet continue on proton pump inhibitor Esophageal reflux 06/14/2012 Overview (07/21/2012): EGD 07/2012 reflux with eosinophils Screen for colon cancer 10/30/2009 Overview (09/20/2019): Colonoscopy 10/2009 normal repeat in 10 years Sleep Apnea AHI-17 08/24/2007 02/19/2008 Resolved Problems Problem Noted Date Diagnosed Date Resolved Date Adjustment disorder with mix ed anxiety and depressed mood 06/22/2006 11/30/2023 Major depressive disorder, s vandana episode, unspecified 06/22/2006 11/30/2023 Encounters Date Type Department Care Team Description 05/07/2024 9:30 AM GAMMA OPERATOR Ancillary Procedure [facility] [address] [place] [address] 05/07/2024 Travel 04/13/2024 8:34 AM CDT - 04/13/2024 11:59 PM CDT Hospital Encounter [facility] [address] [facility] [place] [address] Shen Guillen MD Chronic cough; Abnormal chest CT 04/13/2024 Travel 04/09/2024 2:40 PM CDT Office Visit [facility] [address] [facility] [address] [place] [phone] Shen Guillen MD Consult (Pulmonary-Chronic cough for 4-5 months ) 04/09/2024 Travel 04/04/2024 Travel 03/19/2024 Nurse Triage [facility] [address] [facility] [place] [address] Magi Willson MD Error-please disregard 03/19/2024 Refill [facility] [address] [place], [place] [id number] Magi Willson MD Refill Request (Losartan, Rosuvastatin) from Last 3 Months Immunizations Name Administration Dates Next Due COVID-19 VACCINE SPIKEVAX (M ODERNA 50MCG/0.5ML) 12YO+ PFS 05/09/2023 COVID-19 vaccine (Moderna 10 0mcg/0.5mL) PF, MDV 10/22/2021,09/26/2020,08/29/2020 COVID-19 vaccine (Moderna Misha uriah 50mcg/0.25mL) PF, MDV 05/07/2021 Influenza, High-dose Inactivated 07/12/2014 Influenza, IIV3 (Age >=3 years) 06/14/2012 Influenza, Inactivated AIIV4 (Age 65+ Years) Preserv Free 05/09/2023,07/27/2021 Influenza, Inactivated IIV3 (Age 65+ Years) Preserv Free 04/03/2020,08/20/2019,07/21/2018 Pneumococcal Poly,23-Valent (Pneumovax) 08/20/19 20 Pneumococcal conj 13-Valent (Prevnar 13) 019 Td (Age >=7 Years) 01/17/1996 Tdap 05/19/2023,02/08/2007 Zoster (Shingrix-RZV, recombinant) 06/02/2022, Family History Medical History Relation Name Comments Osteoporosis Father Other Maternal Grandfather dementi a Cancer-breast Maternal Grandmother Arthritis Mother Other Mother macular degener ation, both wet and dry Relation Name Status Comments Father CHF Maternal Grandfather Maternal Grandmother Mother Social History Tobacco Use Types Packs/Day Years Used Date Smoking Tobacco: Former Cigarettes 1 15 0 12/02/2000 - 12/03/2015 Smokeless Tobacco: Never Tobacco Cessation:Counseling Given: Not Answered Comments:quit smoking for 30 yrs Alcohol Use Standard Drinks/Week Comments Yes 7 (1 standard drink = 0.6 oz pur e alcohol) 1 glass wine/DAY PHQ-2 Answer Date Recorded PHQ-2 TOTAL SCORE 0 11/30/2023 Social Connections Answer Date Recorded Frequency of Communication with Friends and Fami ly 0 03/18/2023 Financial Resource Strain Answer Date R ecorded Difficulty of Paying Living Expenses 3 03/18/2023 Difficulty of Paying Living Expenses Not on file 03/18/2023 Food Insecurity Answer Date Recorded Worried About Running Out of Food in the Last Ye ar 1 03/18/2023 Transportation Needs Answer Date Record ed Lack of Transportation (Medical) 1 03/18/2023 Housing Stability Answer Date Recorded Unable to Pay for Housing in the Last Year 1 03/18/2023 Sex and Gender Information Value Date Recorded Sex Assigned at Not on file Gender Identity Not on file Sexual Orientation Not on file Obstetrics History Para Term AB IAB SAB Ectopic Multiple Livin g Live Births 3 3 Date Outcome GA Total Labor Labor/2nd/3rd Weight Sex Type Anes PTL Lexy A1 A5 Name Clin Last Filed Vital Signs Vital Sign Reading Time Taken Comments Blood Pressure 132/80 04/09/2024 2:08 PM CDT Pulse 86 04/09/2024 2:08 PM CDT Temperature 36.2 C (97.2 F) 04/09/2024 2:08 PM CDT Respiratory Rate 16 02/07/2018 2:10 PM CDT Oxygen Saturation 96% 04/09/2024 2:0 8 PM CDT Inhaled Oxygen Concentration - - Weight 82.3 kg (181 lb 6.4 oz) 04/09/2024 2:08 PM CDT Height 174 cm (5' 8.5) 04/09/2024 2:08 PM CDT patient reported Body Mass Index 27.18 04/09/2024 2:08 PM CDT Plan of Treatment Health Maintenance Due Date Last Done Comments RSV vaccine for adults or (1 - 1-dose 75+ series) 2023 Influenza for age 65+ 03/04/2024 05/09/2023 , 07/27/2021, 04/03/2020, Additional history exists Depression screening for age 12+ 11/29/2024 11/30/2023, 11/30/2023, 11/24/2022, Additional history exists Medicare Wellness for age 65+ 11/30/2024, 11/24/2022, 08/05/2021, Additional history exists BMI (ht and wt on same day) for age 18+ 04/09/2025 04/09/2024, 11/30/2023, 06/14/2023, Additional history exists Lipids for age 45-75 11/29/2028 11/30/2023, 11/24/2022, 08/05/2021, Additional history exists Colonoscopy through age 75 09/17/202909/17, 09/18/2019, 10/30/2009, Additional history exists Tetanus booster 05/19/2033 05/19/2023, 02/2007, 01/17/1996 Hepatitis C screening for ag e 18-79 Completed 10/26/2006 Pneumococcal series for age 65+ Completed , 07/21/2018 Zoster (shingles) series for age 50+ Completed 06/02/2022, 03/11/2022 Tdap Completed 05/19/2023, 02/08/2007 DEXA/DXA scan for age 65+ Completed 2023, 08/21/2019, 07/19/2014 COVID-19 vaccine series Completed 03/23/20, 05/09/2023, 10/22/2021, Additional history exists Procedures Procedure Name Priority Date/Time Associated Diagnosis Comments CT CHEST WO Routine 05/07/2024 9:34 AM GAMMA OPERATOR Chronic cough Abnormal chest CT COMPLETE PFT SPIROMETRY LUNG VOL DIFFUSION Routine 04/13/2024 9:00 AM CDT Chronic cough Abnormal chest CT XR DXA BONE DENSITY 2 SITES AXIAL Routine 11/30/2023 10:27 AM CDT Menopause LIPID PANEL W REFLEX MEASURED LDL Routine 11/30/2023 10:03 AM CDT Hyperlipidemia, unspecified hyperlipidemia type COLONOSCOPY 09/18/2019 2:04 PM CDT ANTI HCV Routine 10/26/2006 9:48 AM CDT Screening Exam Venereal Disease from Last 3 Months or Most Recently Relevant to Health Maintenance Results * CT CHEST WO (05/07/2024 9:34 AM GAMMA OPERATOR) Anatomical Region Laterality Modality CHEST, THORAX, HEART Computed To mography 05/07/2024 12:1 0 PM GAMMA OPERATOR Impressions 05/07/2024 12:10 PM GAMMA OPERATOR 1. No acute abnormality in the chest. 2. Stable air-trapping/mosaic attenuation within the upper lobe of the right lung. This finding is nonspecific, though can be seen in the setting of small airways disease. Please note that all CT scans at this facility use dose modulation, iterative reconstruction, and/or weight-based dosing when appropriate to reduce radiation dose to as low as reasonably achievable. Dictated by Alber Wei MD @ 05/07/2024 12:10:13 PM (Electronically Signed) Narrative 05/07/2024 12:10 PM GAMMA OPERATOR For Patients: As a result of the Cures Act, medical imaging exams and procedure reports are released immediately into your electronic medical record. You may view this report before your referring provider. If you have questions, please contact your health care provider. INDICATION Chronic cough. TECHNIQUE: Noncontrast CT images of chest. COMPARISON: CT chest 10/07/2023. FINDINGS: Biapical scarring. No focal consolidation, pleural effusion, or pneumothorax. Mild paraseptal emphysema in the lung apices. Persistent air trapping/mosaic attenuation in the right upper lobe. Solid 2 mm nodule right middle lobe (series 10 image 103). The heart size is normal. No pericardial effusion. Coronary artery atherosclerotic calcifications. No mediastinal or hilar lymphadenopathy. Small hiatal hernia. Diffuse hepatic steatosis. Exaggerated thoracic kyphosis. No aggressive osseous lesions. Procedure Note Alber Wei MD - 05/07/2024 For Patients: As a result of the Cures Act, medical imagingexams and procedure reports are released immediately into your electronicmedical record. You may view this report before your referring provider.If you have questions, please contact your health care provider. INDICATION Chronic cough. TECHNIQUE: Noncontrast CT images of chest. COMPARISON: CT chest 10/07/2023. FINDINGS: Biapical scarring. No focal consolidation, pleural effusion, orpneumothorax. Mild paraseptal emphysema in the lung apices. Persistent airtrapping/mosaic attenuation in the right upper lobe. Solid 2 mm noduleright middle lobe (series 10 image 103). The heart size is normal. No pericardial effusion. Coronary arteryatherosclerotic calcifications. No mediastinal or hilar lymphadenopathy. Small hiatal hernia. Diffuse hepatic steatosis. Exaggerated thoracic kyphosis. No aggressive osseous lesions. IMPRESSION: 1. No acute abnormality in the chest. 2. Stable air-trapping/mosaic attenuation within the upper lobe of theright lung. This finding is nonspecific, though can be seen in the settingof small airways disease. Please note that all CT scans at this facility use dose modulation,iterative reconstruction, and/or weight-based dosing when appropriate toreduce radiation dose to as low as reasonably achievable. Dictated by Alber Wei MD @ 05/07/2024 12:10:13 PM (Electronically Signed) Shen Guillen MD CT * COMPLETE PFT SPIROMETRY LUNG VOL DIFFUSION (04/13/2024 9:00 AM CDT) Narrative [facility] - 04/13/2024 9:00 AM CDT Min Rondon MD 04/21/2024 6:31 PM Pulmonary Function Tests - Results and Interpretation DATE OF SERVICE: 04/13/2024 FINDINGS: FEV1, FVC and FEV1 to FVC ratio are within normal limits. Lung volumes are increased, suggestive hyperinflation. RV to TLC ratio is increased, suggestive of air trapping INTERPRETATION: Normal spirometry. Evidence of hyperinflation and air trapping. Early scooping of expiratory limb of the flow-volume loop suggestive of possible small airways disease. Min Rondon MD Shen Guillen MD PFT ORD [facility] [place], [place] * (ABNORMAL) XR DXA BONE DENSITY 2 SITES AXIAL (11/30/2023 10:27 AM CDT) Anatomical Region Laterality Modality Spine, HIPS, HIPL, HIPR Other Impressions 12/02/2023 4:44 PM CDT Osteopenia. RECOMMENDATIONS: The National Osteoporosis Foundation recommends pharmacologic treatment for patients with T-scores of -2.5 or less, patients with prior history of fragility fractures, or patients with 10-year probability of greater than 3% at hips or greater than 20% of suffering major osteoporotic fractures. Recommend continued optimization of calcium and vitamin D intake through dietary means and/or supplementation and regular exercise. Repeat scan recommended in 3-5 years. Sparkle Almeida PA-C [facility] 12/02/2023 Narrative 12/02/2023 4:44 PM CDT For Patients: Results are automatically released to your [facility]) account once available, in compliance with federal regulations. This means that you may see your results before your provider has had a chance to review them. Please allow 2-3 business days for your provider to comment on the results. XR DXA Bone Mineral Density (BMD) EXAM LOCATION: [address] [address] PATIENT NAME: María Elena Jenkins DATE OF : 1950 EXAM DATE: 11/30/2023 REQUESTING PROVIDER: Magi Willson MD GENDER AT : female HEIGHT: 5' 8.5 (11/30/2023) WEIGHT: 173 lb 9.6 oz (11/30/2023) MENOPAUSAL STATUS: Postmenopausal RACE/ETHNICITY: White RISK FACTORS: Height Loss (2 inches or more), Smoking (prior), and White Race CURRENT MEDICATION FOR BONE LOSS: NONE INDICATION: Follow-up of existing osteopenia and Post-Menopause COMPARISON DATE(S): 2019 DXA scans are compared to prior studies for a patient only when the two (or more) studies were performed on the same scanner. It is not possible to compare data generated on one scanner to data from another because there are not standards in DXA equipment. This applies even if the two scanners are made by the same securities adviser. PROCEDURE: Dual-energy x-ray absorptiometry performed with routine technique. Reporting is completed in the form of a T-score. The T-score represents the standard deviation from peak bone mass based on young healthy adult. A Z-score is used for diagnosis in premenopausal women, and for men under the age of 50. FINDINGS: RESULT LUMBAR SPINE L1 - L4 (L2) BMD: 1.195 g/cm2 T-Score: + 0.1 Z-Score: + 1.4 Change from prior in 2019: Increase 3.7%. RESULTS FEMUR Left femoral neck BMD: 0.814 g/cm2 T-Score: - 1.6 Z-Score: + 0.0 Change from prior in 2020: Decrease 1.10%. Left hip BMD: 0.852 g/cm2 T-Score: - 1.2 Z-Score: + 0.2 Change from prior in 2020: Decrease 3.3%. WHO criteria: Normal: T-score at or above -1 SD Osteopenia: T-score between -1.1 and -2.4 SD Osteoporosis: T-score at or below -2.5 SD FRAX RISK CALCULATION (USED FOR OSTEOPENIA ONLY): 10-year probability of major osteoporotic fracture: 11.9%. 10-year probability of hip fracture: 2.6%. Magi Willson MD DEXA * LIPID PANEL W REFLEX MEASURED LDL (11/30/2023 10:03 AM CDT) [facility] CHOLESTEROL,TOTAL 157 100 - 199 mg/dL 11/30/2023 5:10 PM CDT [facility] Comment: Cholesterol, Total Reference Ranges Desirable <200 mg/dL Borderline 200-239 mg/dL High >=240 mg/dL TRIGLYCERIDES 89 <150 mg/dL 11/30/2023 5:10 PM CDT [facility] HDL CHOLESTEROL 63 >40 mg/dL 5:10 PM CDT [facility] NON-HDL CHOLESTEROL 94 <145 mg/dl 11/30/2023 5:10 PM CDT [facility] CHOL/HDL RATIO 2.49 <4.50 11/30/2023 5:10 PM CDT [facility] LDL CHOLESTEROL 76 <=130 mg/dL 11/30/2023 5:10 PM CDT [facility] VLDL CHOLESTEROL 18 <=30 mg/dL 11/30/2023 5:10 PM T [facility] PROVIDER ORDERED STATUS RANDOM 11/30/2023 5:10 PM T [facility] Blood BLOOD SPECIMEN / Unknown Venipuncture / Unknown 11/30/2023 10:03 AM CDT 11/30/2023 10:03 AM CDT Magi Willson MD CHEMISTRY [facility] [address] [place] [address], * COLONOSCOPY (09/18/2019 2:04 PM CDT) 09/18/2019 2:04 PM CDT Narrative Transcriptions Prashant Lucio MD - 09/18/2019 2:32 PM CDT Patient Name: María Elena Jenkins Procedure Date: 09/18/2019 Gender: Female Date of : 1950 Admit Type: Outpatient Procedure: Colonoscopy Proceduralist: Prashant Lucio MD , Angelica Montalvo (Nurse), Latricia Nayak (Nurse) Referring MD: Magi Willson Indications/Pre-Op Diagnosis: Screening for colorectal malignant neoplasm, Last colonoscopy: July 2009 Medications: Fentanyl 200 micrograms IV, Midazolam 5 mgIV, The level of sedation administered was moderate, (medications documented represent total dosages for multiple procedures) Procedure Description: The patient had risks, benefits and alternatives explained to andgave informed consent. The patient had a stable cardiopulmonary status and judged an adequate candidate for conscious sedation. The Colon [id number] was passed through the anus and advancedto the cecum, identified by appendiceal orifice and ileocecal valve. The colonoscopy was performed without difficulty. The patient toleratedthe procedure well. The quality of the bowel preparation was good. The ileocecal valve, appendiceal orifice, and rectum were photographed. Complications: No immediate complications. Estimated Blood Loss & Specimen: Estimated blood loss: none. Specimen collected - None Findings: The perianal and digital rectal examinations were normal. Scattered small and large-mouthed diverticula were found in thesigmoid colon, descending colon and ascending colon. The colon (entire examined portion) was moderately redundant. The exam was otherwise without abnormality on direct and retroflexion views. Impressions/Post-Op Diagnosis: - Diverticulosis in the sigmoid colon, in the descending colon and in the ascending colon. - Redundant colon. - The examination was otherwise normal on direct and retroflexionviews. - No specimens collected. Recommendation: - Patient has a contact number available for emergencies. The signsand symptoms of potential delayed complications were discussed with the patient. Return to normal activities tomorrow. Written discharge instructions were provided to the patient. - Resume previous diet. - Continue present medications. - Repeat colonoscopy in 10 years for screening purposes. Moderate Sedation: Moderate (conscious) sedation was administered by the endoscopy nurse and supervised by the endoscopist. The following parameters were monitored: oxygen saturation, heart rate, respiratory rate, blood pressure, adequacy of pulmonary ventilation and reponse to care. Please refer to the [facility]' medical record flowsheets and nursing notes for moderate sedation details. Total physician intraservice time was 33 minutes. Prashant Lucio MD 09/18/2019 2:32:28 PM This report has been signed electronically. Note Initiated On: 09/18/2019 2:04 PM Procedure Code(s): --- Professional --- 00224, Colonoscopy, flexible; diagnostic, including collection of specimen(s) bybrushing or washing, when performed (separateprocedure) Diagnosis Code(s): --- Professional --- Z12.11, Encounter for screening formalignant neoplasm of colon K57.30, Diverticulosis of large intestine without perforation or abscess withoutbleeding Q43.8, Other specified congenitalmalformations of intestine CPT copyright 2018 [employer]. All rights reserved. The codes documented in this report are preliminary and upon ecommerce analyst reviewmay be revised to meet current compliance requirements. Scope In: 2:04:35 PM Scope Withdrawal Time 0 hours 6 minutes 33 seconds Scope Out: 2:23:39 PM Prashant Lucio MD PROCEDURE ORD * ANTI HCV (10/26/2006 9:48 AM CDT) ANTI HCV Non-reacti ve [facility] Blood specimen (specimen) BLOOD SPECIMEN / Unknown 10/26/2006 9:48 AM CDT 10/26/2006 9:42 AM CDT Liban River MD SEND OUTS [facility] [place]NAL ZIP [address] [place] [id number] from Last 3 Months or Most Recently Relevant to Health Maintenance Advance Directives Documents on File Type Date Recorded Patient Cnc Manager Expl anation Healthcare Directive 12/27/2018 10:35 AM H EALT CARE DIRECTIVE, [place], 10/25/18 Care Teams Director Of Orthopedics Relationship Specialty Start Date End Date Anamika, Magi Ryann, MD [address] [place] [address] PCP - General Family Practice 07/21/18 Marie Schultz MD Rheumatology Rheumatology 02/07/18
[2024-05-23 07:14] LABS: Creatinine, Point-of-Care* 0.9 mg/dl (0.6-1.3)
[2024-05-23 07:23] LABS: Troponin, Point-of-Care* 0.01 ng/ml (0.01-0.04)
[2024-05-23] MEDS: ONDANSETRON 2 MG/ML inj 4 MG IVP (07:28)
[2024-05-23] MEDS: MORPHINE 4 MG/ML INJ IVP (07:28)
[2024-05-23 07:31] LABS: Basophils Absolute Auto 0.06 K/uL (0.00-0.30); Basophils Percent Auto 0.6 % (0.0-3.0); Eosinophils Absolute Auto 0.42 K/uL (0.00-0.50); Eosinophils Percent Auto 4.5 % (0.0-7.0); Hematocrit 44.4 % (33.0-51.0); Hemoglobin* 15.1 gm/dL (12.0-16.0); Immature Granulocytes Abs Auto 0.06 K/uL (0.00-0.30); Immature Granulocytes Pct Auto 0.6 %; Lymphocytes Percent Auto 15.7 % (20-44); Mean Corpuscular HGB Conc 34 gm/dL (32-36); Mean Corpuscular Hemoglobin 30 pg (26-34); Mean Corpuscular Volume 88 fL (80-100); Monocytes Percent Auto 8.4 % (0.0-11.0); Neutrophils Percent Auto 70.2 % (42.0-72.0); Platelet Count* 214 K/uL (140-440); RDW Coefficient of Variation % 13.3 % (11.5-15.5); Red Blood Count 5.04 m/uL (4.00-5.20); White Blood Count* 9.41 K/uL (4.50-11.00)
[2024-05-23 07:40] LABS: Albumin* 3.9 g/dL (3.3-5.0); Chloride* 104 mmol/L (96-114); Potassium* 3.9 mmol/L (3.6-5.1); Sodium* 134 mmol/L (135-149)
[2024-05-23 07:43] LABS: Alanine Aminotransferase* 189 U/L (4-35); Alkaline Phosphatase* 165 U/L (40-150); Anion Gap 7 mEq/L (7-15); Aspartate Amino Transferase* 212 U/L (12-35); Bilirubin Total* 0.9 mg/dL (0.1-1.5); Blood Urea Nitrogen* 18 mg/dL (7-30); Carbon Dioxide* 23 mmol/L (20-32); Creatinine* 0.8 mg/dL (0.5-1.5); Estimated Glomerular Filt Rate 77 ml/min; Glucose* 156 mg/dL (60-115); Lipase* 114 U/L (23-300); Total Protein* 6.5 g/dL (6.0-8.3)
[2024-05-23 07:44] LABS: Calcium* 9.2 mg/dL (8.4-10.6)
[2024-05-23 08:18] LABS: Slide Review Reflex No
--- NOTE | 2024-05-23 08:39 | MR_ITS ---
Patient: JUDY BENNETT Facility:?[facility] Patient ID:?[id number] Site Patient ID:?[id number]. Site :?[id number] Study:?MRI-Abdomen W/O-05/23/2024 12:03:26 PM Ordering Physician:Toni Adames Final Report: INDICATION: Choledocholithiasis. COMPARISON: CT scan of the chest, abdomen, and pelvis dated 23 May 2024. TECHNIQUE: MRCP with heavily T2 weighted 2D and 3D MRCP images. T1 in-and out of phase and T2 weighted images also performed. No gadolinium administered. FINDINGS: Moderate to severe diffuse fatty infiltration of the liver. No focal abnormalities identified in the visualized portions of the liver, spleen, pancreas, adrenal glands, and kidneys. No hydronephrosis. No adenopathy. 1.8 cm stone in the midportion of the common bile duct causes significant intra extrahepatic bile duct dilation with the common bile duct measuring 2 up to 2.2 cm. Normal size of the main pancreatic duct. 3.9 x 2.3 cm stone in the gallbladder. No gallbladder wall thickening or pericholecystic fluid. IMPRESSION: 1. Choledocholithiasis with a 1.8 cm stone in the midportion of the common bile duct causing significant bile duct dilation. Recommend gastroenterology consultation. 2. Cholelithiasis. 3. Moderate to severe diffuse fatty infiltration of the liver. Dictated by Eric Padron MD @ 05/23/2024 12:18:37 PM Signed by:?Eric Padron MD @05/23/2024 12:18:37 PM (Electronic Signature)
== END 2024-05-23 20:09 | disposition short-term general hospital (02) ==
PROVIDERS: Family Medicine; Emergency Provider Family Medicine; PCP Family Medicine
DX: K80.50 Calculus of bile duct without cholangitis or cholecystitis without obstruction (principal)
CPT/HCPCS: 36415; 71260; 74177; 74181; 80053; 82565; 83690; 84484; 85025; 93005; 94761; 96374; 96375; 99284; 99285; J2270; J2405; Q9967